=== PATIENT | male | born 1985 | race Caucasian/White ===

== ENCOUNTER 2017-01-18 02:55 | Observation (INO) | payer MEDICAID ==
[2017-01-18 03:05] VITALS: BMI 29.5
--- NOTE | 2017-01-18 03:14 | ED PDOC ---
Arrival/HPI - General Historian: Patient - History of Present Illness Symptom Onset: Gradual Symptom Course: Unchanged Activities at Onset: Rest, Light Context: Home <Salinas Abdullahi - Last Filed: 01/18/17 06:57> <Eddie Mcgovern - Last Filed: 01/18/17 14:30> - General Chief Complaint: Chest Pain Time Seen by Provider: 01/18/17 03:06 - History of Present Illness Narrative History of Present Illness (Text): 01/18/17 03:13 Peyman Canada is a 31 year old male, whose past medical history includes sarcoidosis, who presents to the Emergency department complaining of sore throat and chest pain. Patient states he has been experiencing right sided chest pain and dry cough since 09/2016. Patient states he has [place] and [place] [facility] [facility] for same complaint and diagnosed with sarcoidosis. Patient also reports sore throat with associated hoarse voice since yesterday, worse tonight. Patient denies any fever , chills, shortness of breath, nausea, vomiting, back pain, neck pain, headache , dizziness, or any other complaints. (Salinas Abdullahi) Past Medical History - Provider Review Nursing Documentation Reviewed: Yes - Infectious Disease Hx of Infectious Diseases: None - Tetanus Immunization Tetanus Immunization: Unknown - Past Medical History Past Medical History: No Previous - Cardiac Hx Cardiac Disorders: No - Pulmonary Hx Respiratory Disorders: No Hx Asthma: Yes Other/Comment: nodules in lung - Neurological Hx Neurological Disorder: No - HEENT Hx HEENT Disorder: No - Renal Hx Renal Disorder: No - Endocrine/Metabolic Hx Endocrine Disorders: Yes Hx Diabetes Mellitus Type 2: Yes - Hematological/Oncological Hx Blood Disorders: No - Integumentary Hx Dermatological Disorder: No - Musculoskeletal/Rheumatological Hx Musculoskeletal Disorders: No - Gastrointestinal Hx Gastrointestinal Disorders: No - Genitourinary/Gynecological Hx Genitourinary Disorders: No - Psychiatric Hx Psychophysiologic Disorder: No Hx Depression: No Hx Emotional Abuse: No Hx Physical Abuse: No Hx Substance Use: No - Past Surgical History Past Surgical History: No Previous - Anesthesia Hx Anesthesia: No - Suicidal Assessment Feels Threatened In Home Enviroment: No <Salinas Abdullahi - Last Filed: 01/18/17 06:57> Family/Social History - Physician Review Nursing Documentation Reviewed: Yes Family/Social History: No Known Family HX Smoking Status: Current Some Days Smoker Hx Alcohol Use: No Hx Substance Use: No Hx Substance Use Treatment: No <Salinas Abdullahi - Last Filed: 01/18/17 06:57> Allergies/Home Meds <Salinas Abdullahi - Last Filed: 01/18/17 06:57> <Eddie Mcgovern - Last Filed: 01/18/17 14:30> Allergies/Adverse Reactions: Allergies No Known Allergies Allergy (Verified 01/18/17 03:05) Review of Systems - Physician Review All systems were reviewed & negative as marked: Yes - Review of Systems Constitutional: Normal. absent: Fevers Eyes: Normal ENT: Sore Throat Respiratory: Cough. absent: SOB, Sputum Cardiovascular: Chest Pain Gastrointestinal: Normal. absent: Abdominal Pain, Nausea, Vomiting Genitourinary Male: Normal Musculoskeletal: Normal. absent: Back Pain, Neck Pain Skin: Normal Neurological: Normal. absent: Headache, Dizziness Endocrine: Normal Hemo/Lymphatic: Normal Psychiatric: Normal <Salinas Abdullahi - Last Filed: 01/18/17 06:57> Physical Exam Vital Signs Reviewed: Yes Temperature: Afebrile Blood Pressure: Normal Pulse: Regular Respiratory Rate: Normal Appearance: Positive for: Well-Appearing, Non-Toxic, Comfortable Pain Distress: None Mental Status: Positive for: Alert and Oriented X 3 - Systems Exam Head: Present: Atraumatic, Normocephalic Pupils: Present: PERRL Extroacular Muscles: Present: EOMI Conjunctiva: Present: Normal Mouth: Present: Moist Mucous Membranes Pharnyx: Present: ERYTHEMA (Pharyngeal erythema). No: EXUDATE, TONSILS ENLARGED , Peritonsilar Swelling, Uvular Deviation, Muffled/Hoarse Voice, Strider, Soft Palate/Uvular Edema Neck: Present: Normal Range of Motion Respiratory/Chest: Present: Clear to Auscultation, Good Air Exchange. No: Respiratory Distress, Accessory Muscle Use Cardiovascular: Present: Regular Rate and Rhythm, Normal S1, S2. No: Murmurs Abdomen: Present: Normal Bowel Sounds. No: Tenderness, Distention, Peritoneal Signs Back: Present: Normal Inspection Upper Extremity: Present: Normal Inspection. No: Cyanosis, Edema Lower Extremity: Present: Normal Inspection. No: Edema Neurological: Present: GCS=15, CN II-XII Intact, Speech Normal Skin: Present: Warm, Dry, Normal Color. No: Rashes Psychiatric: Present: Alert, Oriented x 3, Normal Insight, Normal Concentration <Salinas Abdullahi - Last Filed: 01/18/17 06:57> Medical Decision Making - Lab Interpretations I have reviewed the lab results: Yes - RAD Interpretation Satellite Communications Engineer: ED Physician - EKG Interpretation Interpreted by ED Physician: Yes Type: 12 lead EKG <Salinas Abdullahi - Last Filed: 01/18/17 06:57> ED OBSERVATION <Salinas Abdullahi - Last Filed: 01/18/17 06:57> Discharge: Yes Date of observation admission: 01/18/17 Time of observation admission: 03:00 <Eddie Mcgovern - Last Filed: 01/18/17 14:30> - Observation admission statement Patient is being placed in observation because:: Chest pain (Eddie Mcgovern) - Goals of Observation Goals of observation are:: Monitor and treat symptoms (Eddie Mcgovern) - Progress Note Progress Note: 01/18/17 03:00 Patient with right sided chest pain, dry cough and sore throat. 01/18/17 05:00 Patient resting comfortably, in no acute distress. 01/18/17 07:00 Sign out from overnight, pt with inconclusive CT r/o PE, pending VQ 01/18/17 09:00 Patient resting comfortably, in no acute distress. 01/18/17 11:00 Patient sleeping comfortably. 01/18/17 13:00 Patient resting comfortably with no new complaints. Report Date : 01/18/2017 13:36:28 Procedure: Chest xray Dictator : Jordan Escalante MD IMPRESSION: Lowprobability ventilation perfusion scan for pulmonary embolism. On re-evaluation, patient feels better and is in no acute distress. I have discussed the results and plan with the patient, who expresses understanding. Patient in agreement with plan to be discharged home. Patient is stable for discharge. Patient was instructed to follow up with physician or return if symptoms worsen or new concerning symptoms arise. Pt notes that he has a PMD who needs to refer him for a lung Bx. I instructed pt to f/u for proper f/u and referrals. pt denies any cp/sob/sanchez on discharge states he feels comfortable being dc'd home with outpatient f/u Pt states he understands to return to the ER right away for new or worsening symptoms or for inability to f/u with PMD or specialist as instructed. Patient states that he fully agrees with and understands discharge instructions. States that he agrees with the plan and disposition. Verbalized and repeated discharge instructions and plan. I have given the patient opportunity to ask any additional questions. (Eddie Mcgovern) - Scribe Statement The provider has reviewed the documentation as recorded by the Scribe <Salinas Abdullahi - Last Filed: 01/18/17 06:57> <Eddie Mcgovern - Last Filed: 01/18/17 14:30> - Scribe Statement Lourdes Cruz (Salinas Abdullahi) Provider Attestation: All medical record entries made by the Scribe were at my direction and personally dictated by me. I have reviewed the chart and agree that the record accurately reflects my personal performance of the history, physical exam, medical decision making, and the department course for this patient. I have also personally directed, reviewed, and agree with the discharge instructions and disposition. (Salinas Abdullahi) Disposition/Present on Arrival - Present on Arrival Any Indicators Present on Arrival: No History of DVT/PE: No History of Uncontrolled Diabetes: No Urinary Catheter: No History of Decub. Ulcer: No History Surgical Site Infection Following: None - Disposition Have Diagnosis and Disposition been Completed?: Yes Disposition Time: 06:57 <Salinas Abdullahi - Last Filed: 01/18/17 06:57> - Disposition Disposition Time: 03:00 <Eddie Mcgovern - Last Filed: 01/18/17 14:30> - Disposition Diagnosis: Chest pain, Pharyngitis Disposition: HOME/ ROUTINE Patient Problems: Current Active Problems Problem Status Onset Chest pain Acute Pharyngitis Acute Condition: STABLE
[2017-01-18 03:55] LABS: ADD MANUAL DIFF? NO
[2017-01-18 04:24] LABS: INR 1.12 (0.93-1.08); PARTIAL THROMBOPLASTIN TIME 29.6 Seconds (23.7-30.8)
[2017-01-18 04:26] LABS: D DIMER 1.36 mg/L FEU (0-0.50)
[2017-01-18 04:55] LABS: ALB/GLOB RATIO 1.2 (1.1-1.8); ALKALINE PHOSPHATASE 96 U/L (38-133); ALT/SGPT 34 U/L (7-56); AST/SGOT 24 U/L (15-59); BILIRUBIN,TOTAL 1.2 mg/dL (0.2-1.3); BLOOD UREA NITROGEN 19 mg/dL (7-21); CARBON DIOXIDE 25 mmol/L (21-33); CHLORIDE 97 mmol/L (98-107); GFR AFRICAN-AMERICAN > 60; MAGNESIUM 1.7 mg/dL (1.7-2.2); POTASSIUM 3.6 mmol/L (3.6-5.0); SODIUM 134 mmol/L (132-148); TOTAL PROTEIN 7.7 g/dL (5.8-8.3)
[2017-01-18 05:06] LABS: BASO # 0.03 K/mm3 (0.0-2.0); BASO % 0.3 % (0.0-3.0); EOS # 0.2 (0.0-0.7); GRAN # 5.96 (1.4-6.5); GRAN % 63.8 % (50.0-68.0); HEMATOCRIT 38.7 % (42.0-52.0); LYMPH # 1.9 (1.2-3.4); LYMPH % 20.7 % (22.0-35.0); MEAN CORPUSCULAR HGB CONC 36.2 g/dl (31.0-37.0); MEAN PLATELET VOLUME 10.3 fl (7.0-11.0); MONO # 1.2 (0.1-0.6); MONO % 13.2 % (1.0-6.0); PLATELET COUNT 174 10^3/uL (120.0-450.0); RED CELL DISTRIBUTION WIDTH 12.1 % (11.5-14.5); WHITE BLOOD COUNT 9.4 10^3/ul (4.5-11.0)
[2017-01-18 05:28] LABS: TROPONIN I < 0.01 ng/mL
[2017-01-18 05:29] LABS: GLUCOSE,RANDOM 303 mg/dL (70-110)
[2017-01-18] MEDS ORDERED: Iodixanol 320 MG/ML 100 ML BOTTLE IV ONE (05:36)
[2017-01-18] MEDS: Sodium Chloride 0.9% 1,000 ML IV STA ×2 (05:54→07:10)
[2017-01-18] MEDS ORDERED: Naproxen 550 mg Tab PO STA (07:06)
--- NOTE | 2017-01-18 07:28 | CT ---
EXAM: CT Angiography Chest With Intravenous Contrast CLINICAL HISTORY: 31 years old, male; Abnormal findings; Abnormal diagnostic tests; Elevated d-dimer; Additional info: Cp elevated dimer TECHNIQUE: Axial computed tomographic angiography images of the chest with intravenous contrast using pulmonary embolism protocol. This CT exam was performed using one or more of the following dose reduction techniques: automated exposure control, adjustment of the mA and/or kV according to patient size, and/or use of iterative reconstruction technique. MIP reconstructed images were created and reviewed. Coronal and sagittal reformatted images were created and reviewed. CONTRAST: 96 mL of visi 320 administered intravenously. EXAM DATE/TIME: 01/18/2017 5:15 AM COMPARISON: DX - CHEST PORTABLE 01/18/2017 3:53:17 AM FINDINGS: Pulmonary embolism cannot be excluded on this study as evaluation is limited by bolus timing (the aorta is optimally opacified rather than the pulmonary arteries). No aortic dissection or aneurysm. There are numerous mediastinal lymph nodes and hilar lymph nodes. The largest in the left hilar region measuring 1.5 x 2.3 cm, and the largest in the right hilar region measuring 1.4 x 2 cm. There are tiny subcentimeter nodules bilaterally none of which measure greater than 4 mm (Right images 121, 139, 150; Left images 66, 124, 180).Follow up based on Perla criteria. No pleural or pericardial effussions. There are old right anterior lateral rib fractures (6th through 8th). IMPRESSION: Nondiagnostic study for pulmonary emboli. Mediastinal and hilar lymph nodes and tiny bilateral nodules.Inflammatory, infectious, and neoplastic etiologies would all be possible. Followup is recommended.
[2017-01-18] MEDS ORDERED: Sodium Chloride 0.9% 1,000 ML IV STA (07:49)
--- NOTE | 2017-01-18 07:59 | ED PDOC ---
Physical Exam Vital Signs Reviewed: Yes Vital Signs Temp Pulse Pulse Resp BP Pulse Ox 01/18/17 03:08 111 H 01/18/17 03:05 99.1 F 111 H 20 148/96 H 100 01/18/17 03:04 99.1 F 111 H 20 148/96 H 100 Temperature: Afebrile Blood Pressure: Hypertensive Pulse: Tachycardic Respiratory Rate: Normal Medical Decision Making ED Course and Treatment: 01/18/17 07:57 Patient endorsed to me by Dr. Abdullahi at 07:32. Pending vq scan. Patient presented with sore throat and chest pain. - Lab Interpretations Lab Results: 01/18/17 03:40 01/18/17 03:40 Lab Results 01/18/17 03:40: Grp A Beta Strep Ag Negative 01/18/17 03:40: Sodium 134, Potassium 3.6, Chloride 97 L, Carbon Dioxide 25, Anion Gap 16, BUN 19, Creatinine 0.8, Est GFR ( Amer) > 60, Est GFR (Non- Af Amer) > 60, Random Glucose 303 H*, Calcium 9.0, Magnesium 1.7, Total Bilirubin 1.2, AST 24, ALT 34, Alkaline Phosphatase 96, Lactate Dehydrogenase 292 L, Total Creatine Kinase 92, Troponin I < 0.01, Total Protein 7.7, Albumin 4.2, Globulin 3.5, Albumin/Globulin Ratio 1.2 01/18/17 03:40: PT 12.1 H, INR 1.12 H, APTT 29.6, D-Dimer, Quantitative 1.36 H 01/18/17 03:40: WBC 9.4, RBC 4.66, Hgb 14.0, Hct 38.7 L, MCV 83.0, MCH 30.0, MCHC 36.2, RDW 12.1, Plt Count 174, MPV 10.3, Gran % 63.8, Lymph % (Auto) 20.7 L , [place] % (Auto) 13.2 H, Eos % (Auto) 2.0, Baso % (Auto) 0.3, Gran # 5.96, Lymph # 1.9, [place] # 1.2 H, Eos # 0.2, Baso # 0.03 - RAD Interpretation Radiology Orders: 01/18/17 03:13 CHEST PORTABLE [RAD] Stat 01/18/17 05:15 ANGIO CHEST PE PROTOCOL [CT] Stat 01/18/17 07:28 LUNG PERF & VENT SCAN [NM] Stat 01/18/17 07:30 ABDOMEN COMPLETE [US] Stat - Medication Orders Current Medication Orders: Sodium Chloride (Sodium Chloride 0.9%) 1,000 mls @ 1,000 mls/hr IV .Q1H STA Stop: 01/18/17 08:48 Discontinued Medications Sodium Chloride (Sodium Chloride 0.9%) 1,000 mls @ 999 mls/hr IV .Q1H1M STA Stop: 01/18/17 06:36 Last Admin: 01/18/17 07:10 Dose: 999 mls/hr Iodixanol (Visipaque 320 Mg/Ml 100 Ml) Confirm Administered Dose 100 ml IV .STK- MED ONE Stop: 01/18/17 05:37 Ketorolac Tromethamine (Toradol) 30 mg IVP STAT STA Stop: 01/18/17 03:14 Last Admin: 01/18/17 03:47 Dose: 30 mg Naproxen (Anaprox Ds) 550 mg PO STAT STA Stop: 01/18/17 07:07 Last Admin: 01/18/17 07:26 Dose: 550 mg Disposition/Present on Arrival - Present on Arrival Any Indicators Present on Arrival: No History of DVT/PE: No History of Uncontrolled Diabetes: No Urinary Catheter: No History of Decub. Ulcer: No History Surgical Site Infection Following: None - Disposition Diagnosis: Chest pain, Pharyngitis Disposition: HOME/ ROUTINE Patient Problems: Current Active Problems Problem Status Onset Chest pain Acute Pharyngitis Acute Condition: STABLE Discharge Instructions (ExitCare): Chest Pain (ED), Pharyngitis (ED) Additional Instructions: please follow up with you doctor. and specialist. return to er with worsening symtoms or concerns. Prescriptions: Naproxen 500 mg PO BID PRN #14 tab PRN Reason: Pain, Mild (1-3) Referrals: [facility] [Outside] - Follow up with primary [facility] [place] - Follow up with primary Rosie Dill MD [Staff Provider] - Follow up with primary
[2017-01-18 08:22] VITALS: TEMP 98.1
--- NOTE | 2017-01-18 09:56 | RAD ---
HISTORY: cp COMPARISON: No prior. FINDINGS: LUNGS: No active pulmonary disease. PLEURA: No significant pleural effusion identified, no pneumothorax apparent. CARDIOVASCULAR: Normal. OSSEOUS STRUCTURES: No significant abnormalities. VISUALIZED UPPER ABDOMEN: Normal. OTHER FINDINGS: None. IMPRESSION: No active disease.
[2017-01-18 13:31] LABS: TROPONIN I < 0.01 ng/mL
--- NOTE | 2017-01-18 13:38 | NM ---
COMPARISON: Chest x-ray 01/18/2017 TECHNIQUE: 34.0 mCi technetium 99-m DTPA 5.0 mCI technetium 99-m MAA administered intravenously. FINDINGS: VENTILATION COMPONENT: Normal. PERFUSION COMPONENT: Normal. IMPRESSION: Lowprobability ventilation perfusion scan for pulmonary embolism.
[2017-01-18 13:57] VITALS: BP 118/78; PULSE 106; RESP 19; O2SAT 98
--- NOTE | 2017-01-18 14:55 | US ---
HISTORY: ruq pain COMPARISON: None. TECHNIQUE: Sonographic evaluation of the abdomen. FINDINGS: LIVER: Measures 18.6 cm. Normal echogenicity of the liver parenchyma. No mass. No intrahepatic bile duct dilatation. GALLBLADDER: Unremarkable. No gallstones. COMMON BILE DUCT: Measures 4.7 mm. No stones. No dilatation. PANCREAS: Unremarkable as visualized. No mass. No ductal dilatation. RIGHT KIDNEY: Measures 12.2 x 5.3 x 6.2cm. Normal echogenicity. No calculus, mass, or hydronephrosis. LEFT KIDNEY: Measures 12.7 x 6.5 x 7.7cm. Normal echogenicity. No calculus, mass, or hydronephrosis. SPLEEN: Normal in size and contour. No mass. AORTA: Not well visualized IVC: Unremarkable. OTHER FINDINGS: None. IMPRESSION: Unremarkable abdominal sonogram.
--- NOTE | 2017-01-18 15:05 | CARD ---
APPROVED REPORT EKG Measurement Heart [id number] <Conclusion> Normal sinus rhythm Possible Left atrial enlargement Borderline ECG
== END 2017-01-18 14:22 | disposition home or self-care (01) ==
LOC: ED 02:55 → EROBSV 03:00
PROVIDERS: ADMIT Emergency Medicine; ATTEND Emergency Medicine
DX: R07.9 Chest pain, unspecified (principal); J02.9 Acute pharyngitis, unspecified
CPT/HCPCS: 71010; 71275; 76700; 78582; 80053; 82550; 83615; 83735; 84484; 85025; 85378; 85610; 85730; 87070; 87430; 93005; 96361; 96374; 99285; A9540; G0378; J1885; J7040; Q9967